=== PATIENT | male | born 1950 | race Caucasian/White ===

== ENCOUNTER → 2023-02-21 13:05 | Outpatient (BNVA) | payer MEDICARE, BC, SELFPAY | PROVIDERS: Family Provider Internal Medicine; Visit Provider Nurse Practitioner | DX: Z20.822 Contact with and (suspected) exposure to COVID-19 (principal); J01.90 Acute sinusitis, unspecified; J01.40 Acute pansinusitis, unspecified | CPT/HCPCS: 87426 ==